=== PATIENT | male | born 1990 | race Caucasian/White ===

== ENCOUNTER → 2022-09-06 12:06 | Outpatient (CLI) | payer OTHER, SELFPAY ==
--- NOTE | 2022-09-06 | DI.RAD.S_ITS ---
PROCEDURE: XR CHEST 2V INDICATIONS: LUNG CONDITION TECHNIQUE: 2 views of the chest were acquired. COMPARISON: None. FINDINGS: Surgical changes and devices: None. Lungs and pleura: Lungs are clear. No pleural effusions or pneumothorax. Mediastinum: Mediastinal contours are normal. Heart size is normal. Bones and chest wall: No suspicious bony abnormalities. Soft tissues appear unremarkable. IMPRESSION: No acute cardiopulmonary abnormality. Dictated by: Librado Arora M.D. on 09/06/2022 at 13:42 Approved by: Librado Arora M.D. on 09/06/2022 at 13:42
--- NOTE | 2022-09-12 10:15 | P.PFT.S_ITS ---
Pulmonary Function Test Referral & Results Date Patient Seen: 09/06/22 Results: The?spirometry?demonstrates?an?FVC?of?5.88?L?which?is?95%?of?predicted. The?FEV1?was?measured?at?4.12?L?which?is?83%?of?predicted. The?FEV1/FVC?ratio?was?70?which?is?85%?of?predicted. Following?the?admini stration?of?bronchodilator?there?was?a?14%?improvement?in?FEF?25-75%. Interpretation: This?study?which?was?done?as?forced?spirometry ?alone?with?and?without?bronchodilator?demonstrates?possibly?very?mild?obstructi ve?lung?disease?based?on?minimal?reduction?in?FEV1?and?minimal?improvement?in?sm all?airway?flow?post?bronchodilator?as?a srinivasan.??However?shape?a?flow?volume?curve?does?not?really?support?the?presence?of ?obstructive?lung?disease? Clinical?correlation?suggested
--- NOTE | 2022-09-12 10:15 | PM.PFT.1 ---
Pulmonary Function Test Referral & Results Date Patient Seen: 09/06/22 Results: The?spirometry?demonstrates?an?FVC?of?5.88?L?which?is?95%?of?predicted. The?FEV1?was?measured?at?4.12?L?which?is?83%?of?predicted. The?FEV1/FVC?ratio?was?70?which?is?85%?of?predicted. Following?the?administration?of?bronchodilator?there?was?a?14%?improvement?in?FEF?25-75%. Interpretation: This?study?which?was?done?as?forced?spirometry?alone?with?and?without?bronchodilator?demonstrates?possibly?very?mild?obstructive?lung?disease?based?on?minimal?reduction?in?FEV1?and?minimal?improvement?in?small?airway?flow?post?bronchodilator?as?above .??However?shape?a?flow?volume?curve?does?not?really?support?the?presence?of?obstructive?lung?disease? Clinical?correlation?suggested
== END ==
PROVIDERS: Referring Provider Chiropractor; Visit Provider Chiropractor
DX: J98.4 Other disorders of lung (principal); F17.210 Nicotine dependence, cigarettes, uncomplicated; J98.8 Other specified respiratory disorders
CPT/HCPCS: 71046; 94060